=== PATIENT | female | born 1960 | race American Indian/Alaskan Native ===

== ENCOUNTER 2020-09-08 19:46 | Emergency (ER) | payer BC ==
[2020-09-08] MEDS ORDERED: HYDROcodone/ACETAMINOPHEN 5-325 MG TAB PO STA (23:31)
--- NOTE | 2020-09-08 23:41 | Emergency Department Report ---
ED General Adult HPI - General Chief complaint: Extremity Problem,Nontraumatic Stated complaint: LT SIDE PAIN/SWELLING Time Seen by Provider: 09/08/20 23:31 Source: patient Mode of arrival: Ambulatory Limitations: No Limitations - History of Present Illness Initial comments: 59-year-old obese -Cypriot female past medical history of hypertension and arthritis Zentz to the emergency department complaining of a 2-year history continued left hip pain and right knee pain which radiates down to the level left foot Quality: aching, dull Consistency: constant Worsens with: none Associated Symptoms: denies: confusion, chest pain, nausea/vomiting, weakness - Related Data Previous Rx's Medication Instructions Recorded Last Taken Type Meloxicam [Mobic] 15 mg PO DAILY #10 tablet 09/08/20 Unknown Rx Allergies Allergy/AdvReac Type Severity Reaction Status Date / Time Sulfa (Sulfonamide Allergy Rash Verified 09/08/20 22:08 Antibiotics) ED Review of Systems ROS: Stated complaint: LT SIDE PAIN/SWELLING Other details as noted in HPI Comment: All other systems reviewed and negative ED Past Medical Hx - Past Medical History Previous Medical History?: Yes Hx Arthritis: Yes - Surgical History Past Surgical History?: No - Social History Smoking Status: Never Smoker Substance Use Type: None - Medications Home Medications: Home Medications Medication Instructions Recorded Confirmed Last Taken Type Meloxicam [Mobic] 15 mg PO DAILY #10 tablet 09/08/20 Unknown Rx ED Physical Exam - General Limitations: No Limitations General appearance: alert, in no apparent distress - Head Head exam: Present: atraumatic, normocephalic - Eye Eye exam: Present: normal appearance - ENT ENT exam: Present: mucous membranes moist - Neck Neck exam: Present: normal inspection - Respiratory Respiratory exam: Present: normal lung sounds bilaterally. Absent: respiratory distress - Cardiovascular Cardiovascular Exam: Present: regular rate, normal rhythm. Absent: systolic murmur, diastolic murmur, rubs, gallop - GI/Abdominal GI/Abdominal exam: Present: soft, normal bowel sounds - Extremities Exam Extremities exam: Present: normal inspection, tenderness (To the left knee with palpation and range of motion there is some discomfort with full flexion. Full extension is is present. Normal varus and valgus. Pulses 2+ there is popliteal tenderness but no significant masses appreciated.), other (Left hip tenderness at the sacroiliac joint area of the greater trochanter. No deformity or shortening is noted.) - Back Exam Back exam: Present: normal inspection. Absent: CVA tenderness (R), CVA tenderness (L) - Neurological Exam Neurological exam: Present: alert, oriented X3, CN II-XII intact, normal gait - Psychiatric Psychiatric exam: Present: normal affect, normal mood - Skin Skin exam: Present: warm, dry, intact, normal color. Absent: rash Critical care attestation.: If time is entered above; I have spent that time in minutes in the direct care of this critically ill patient, excluding procedure time. ED Disposition Clinical Impression: Chronic pain, Knee pain, Hip pain Disposition: TO HOME OR SELFCARE Is pt being admited?: No Does the pt Need Aspirin: No Condition: Stable Instructions: Chronic Knee Pain, Adult, [id number], How to Use Cold Therapy, [id number], Chronic Pain, Adult, How to Use Cold Therapy, Pain Medicine Instructions, How to Use a Knee Brace Prescriptions: Meloxicam [Mobic] 15 mg PO DAILY #10 tablet Referrals: MONCHO PACHECO MD [Primary Care Provider] - 3-5 Days DERIK CHEEMA MD [Staff Physician] - 3-5 Days [facility] [Provider Group] - 3-5 Days
[2020-09-09 02:01] VITALS: BP 133/80
== END 2020-09-09 01:00 | disposition home or self-care (01) ==
LOC: ED 19:46
DX: M25.552 Pain in left hip (principal); M25.561 Pain in right knee; G89.29 Other chronic pain; M19.91 Primary osteoarthritis, unspecified site; Z79.899 Other long term (current) drug therapy; Z88.2 Allergy status to sulfonamides
CPT/HCPCS: 99282

== ENCOUNTER 2020-10-11 11:17 | Outpatient (CLI) | payer BC ==
--- NOTE | 2020-10-11 12:53 | XRay Report ---
XR knee 1-2V LT INDICATION / CLINICAL INFORMATION: LEFT KNEE PAIN. COMPARISON: None available. FINDINGS: BONES/JOINT(S): No acute fracture or subluxation. No significant degenerative changes. Small joint ef fusion. SOFT TISSUES: No significant abnormality. ADDITIONAL FINDINGS: None. Signer Name: Ashu Cohen MD Signed: 10/11/2020 12:48 PM Workstation Name: [email or web address]
--- NOTE | 2020-10-11 12:54 | XRay Report ---
XR spine lumbosacral 4+V INDICATION / CLINICAL INFORMATION: LOW BACK PAIN. COMPARISON: None available. FINDINGS: BONES/JOINT(S): No acute fracture or subluxation. Moderate degenerative disc disease at L5-S1 without additional significant disc height loss. SOFT TISSUES: No significant abnormality. ADDITIONAL FINDINGS: None. Signer Name: Ashu Cohen MD Signed: 10/11/2020 12:49 PM Workstation Name: [email or web address]
--- NOTE | 2020-10-11 12:54 | XRay Report ---
XR hip 2-3V LT INDICATION / CLINICAL INFORMATION: LEFT HIP PAIN. COMPARISON: None available. FINDINGS: BONES/JOINT(S): No acute fracture or subluxation. Moderate osteoarthritis and left hip joint. No foca l bone lesions. SOFT TISSUES: No significant abnormality. ADDITIONAL FINDINGS: None. Signer Name: Ashu Cohen MD Signed: 10/11/2020 12:49 PM Workstation Name: [email or web address]
== END 2020-10-11 11:18 | disposition home or self-care (01) ==
LOC: XRAY 11:17
PROVIDERS: ATTEND Orthopaedic Surgery
DX: M16.12 Unilateral primary osteoarthritis, left hip (principal); M25.462 Effusion, left knee; M51.37 Other intervertebral disc degeneration, lumbosacral region
CPT/HCPCS: 72110

== ENCOUNTER 2021-01-01 11:03 | Outpatient (CLI) | payer BC ==
[2021-01-01 11:41] LABS: Basophils # (Auto) 0.1 K/mm3 (0.0-0.1); Eosinophils # (Auto) 0.2 K/mm3 (0.0-0.4); Eosinophils % (Auto) 3.9 % (0.0-4.3); Hematocrit 40.6 % (30.3-42.9); Hemoglobin 13.7 gm/dl (10.1-14.3); Lymphocytes # (Auto) 2.7 K/mm3 (1.2-5.4); Lymphocytes % (Auto) 47.1 % (13.4-35.0); Mean Corpuscular HGB Conc 34 % (30-34); Mean Corpuscular Volume 87 fl (79-97); Monocytes # (Auto) 0.4 K/mm3 (0.0-0.8); Monocytes % (Auto) 7.1 % (0.0-7.3); Platelet Count 324 K/mm3 (140-440); Red Blood Count 4.69 M/mm3 (3.65-5.03); Red Cell Distribution Width 14.7 % (13.2-15.2)
[2021-01-01 14:13] LABS: Erythrocyte Sedimentation Rate 47 mm/Hr (0-20)
[2021-01-05 06:25] LABS: ANA Screen, IFA Negative (Negative)
== END 2021-01-01 11:04 | disposition home or self-care (01) ==
LOC: LAB 11:03
PROVIDERS: ATTEND Orthopaedic Surgery
DX: M54.50 Low back pain, unspecified (principal); M25.552 Pain in left hip; M25.562 Pain in left knee
CPT/HCPCS: 36415; 84550; 85025; 85652; 86038; 86431

== ENCOUNTER 2021-01-22 11:43 | Outpatient (CLI) | payer BC ==
--- NOTE | 2021-01-22 15:06 | Magnetic Resonance Report ---
MRI LEFT KNEE WITHOUT CONTRAST INDICATION / CLINICAL INFORMATION: PAIN IN LEFT KNEE X 5MONTHS. TECHNIQUE: Multiplanar, multisequence MR images were obtained. No contrast used. COMPARISON: Radiograph dated 10/11/2020 FINDINGS: ACL: No significant abnormality. PCL: No significant abnormality. DISTAL QUADRICEPS TENDON: No significant abnormality. PATELLAR TENDON: No significant abnormality. MEDIAL MENISCUS: No significant abnormality. LATERAL MENISCUS: Complex tear involving body and posterior horn. MCL: No significant abnormality. LCL: No significant abnormality. DISTAL IT BAND: No significant abnormality. PATELLOFEMORAL ALIGNMENT: No significant abnormality. ARTICULAR CARTILAGE: Tricompartmental DJD most advanced in the lateral compartment where there is a 1 .4 cm osteochondral lesion along the mid to posterior and lateral weightbearing portion of the latera l tibial plateau. JOINT SPACE: No significant joint effusion or synovitis. No significant popliteal cyst. No intra-omari cular bodies. BONES: Subchondral degenerative cystic change in the lateral tibial plateau. No fracture. No osseous lesion. SOFT TISSUES: No significant abnormality. ADDITIONAL FINDINGS: None. IMPRESSION: 1. Tricompartmental DJD with osteochondral lesion along the lateral tibial plateau. 2. Complex tear of the body and posterior horn of lateral meniscus. Report dictated by: Naman Mixon MD Report dictated on: 01/22/2021 1:44 PM I have reviewed the images, agree with this report, and edited this report as needed. Signer Name: Tha Rendon MD Signed: 01/22/2021 3:02 PM Workstation Name: [email or web address]
--- NOTE | 2021-01-22 15:08 | Magnetic Resonance Report ---
MRI LEFT HIP WITHOUT CONTRAST INDICATION / CLINICAL INFORMATION: HIP PAIN AND LOWER BACK PAIN. TECHNIQUE: Multiplanar, multisequence MR images were obtained. No contrast used. COMPARISON: None available. FINDINGS: ACETABULAR LABRUM: Degenerative tearing of superior labrum ARTICULAR CARTILAGE: Advanced DJD of left hip joint. LIGAMENTUM TERES: No significant abnormality. JOINT SPACE AND CAPSULE: No significant abnormality. GLUTEAL MUSCLES/TENDONS: No significant abnormality. ILIOPSOAS MUSCLES/TENDON: No significant abnormality. PROXIMAL HAMSTRING TENDONS: No significant abnormality. GROIN MUSCLES/TENDONS: No significant abnormality. SOFT TISSUES: No significant abnormality. BONES: Subchondral cystic change and acetabulum and femoral head. No aggressive osseous lesion. No fr acture. SACROILIAC JOINT(S): No significant abnormality. LOWER LUMBAR SPINE: No significant abnormality of visualized lower lumbar spine. SOFT TISSUE WITHIN PELVIS: 15 mm filling defect in the endometrial cavity of uterus. ADDITIONAL FINDINGS: None. IMPRESSION: 1. Advanced DJD of left hip joint with degenerative tearing of the labrum. 2. 15 mm filling defect in the endometrial cavity of uterus is nonspecific, possibly fibroid versus p olyp. Recommend clinical correlation. Report dictated by: Naman Mixon MD Report dictated on: 01/22/2021 1:52 PM I have reviewed the images, agree with this report, and edited this report as needed. Signer Name: Tha Rendon MD Signed: 01/22/2021 3:04 PM Workstation Name: [email or web address]
== END 2021-01-22 11:44 | disposition home or self-care (01) ==
LOC: MRI 11:43
PROVIDERS: ATTEND Orthopaedic Surgery
DX: S83.272A Complex tear of lateral meniscus, current injury, left knee, initial encounter (principal); S73.102A Unspecified sprain of left hip, initial encounter; M16.12 Unilateral primary osteoarthritis, left hip; X58.XXXA Exposure to other specified factors, initial encounter; Y93.89 Activity, other specified; Y92.89 Other specified places as the place of occurrence of the external cause; Y99.8 Other external cause status
CPT/HCPCS: 73721

== ENCOUNTER 2021-02-05 09:29 | Day surgery (SDC) | payer BC ==
[2021-01-31 12:34] LABS: Hematocrit 39.6 % (30.3-42.9); Hemoglobin 13.2 gm/dl (10.1-14.3); Mean Corpuscular HGB Conc 33 % (30-34); Mean Corpuscular Volume 88 fl (79-97); Platelet Count 347 K/mm3 (140-440); Red Blood Count 4.52 M/mm3 (3.65-5.03)
[2021-01-31 12:51] LABS: BUN/Creatinine Ratio 18; Blood Urea Nitrogen 14 mg/dL (7-17); Calcium 9.4 mg/dL (8.4-10.2); Hemolysis Index 9
[2021-02-05] MEDS ORDERED: HYDROmorphone 1 MG/1 ML INJ IV PRN (11:33)
--- NOTE | 2021-02-05 11:34 | Anesthesia Day of Surgery ---
Anesthesia Day of Surgery - Day of Surgery Patient Examined: Yes Patient H&P Reviewed: Yes Patient is NPO: Yes
--- NOTE | 2021-02-05 11:35 | Anesthesia Consultation ---
Anesthesia Consult and Med Hx Date of service: 02/05/21 - Airway Anesthetic Teeth Evaluation: Dentures ROM Head & Neck: Adequate Mental/Hyoid Distance: Adequate Mallampati Class: Class III Intubation Access Assessment: Probably Good - Pre-Operative Health Status ASA Pre-Surgery Classification: ASA3 Proposed Anesthetic Plan: General - Pulmonary Hx Smoking: No Hx Sleep Apnea: No (LOUIE PRE SCREEN HIGH RISK) - Cardiovascular System Hx Hypertension: Yes (X 2 YRS) - Central Nervous System Hx Psychiatric Problems: No - Gastrointestinal Hx Gastroesophageal Reflux Disease: No - Hematic Hx Anemia: No Hx Sickle Cell Disease: No - Other Systems Hx Cancer: No Hx Obesity: Yes
[2021-02-05] MEDS ORDERED: LACTATED RINGERS 1,000 ML IV SCH (11:45)
[2021-02-05] MEDS ORDERED: ONDANSETRON 4 MG/2 ML INJ IV PRN (11:46)
[2021-02-05] MEDS ORDERED: KETOROLAC 30 MG/1 ML INJ IV ONE (12:00)
[2021-02-05] MEDS ORDERED: ACETAMINOPHEN 500 MG TAB PO ONE (12:00)
[2021-02-05] MEDS ORDERED: propofoL 200 MG/20 ML VIAL IV ONE ×2 (12:38→13:21)
[2021-02-05] MEDS ORDERED: LIDOCAINE MPF (2%) 20 MG/1 ML VIAL 5 ML ONE ×2 (12:38→13:21)
[2021-02-05] MEDS ORDERED: fentaNYL 100 MCG/2 ML INJ ONE ×2 (12:38→13:21)
[2021-02-05] MEDS ORDERED: ceFAZolin/STERILE WATER 2 GM/20 ML SYRINGE IV NR (13:00)
[2021-02-05] MEDS ORDERED: ONDANSETRON 4 MG/2 ML INJ ONE (13:21)
[2021-02-05] MEDS ORDERED: EPINEPHrine 30 MG/30 ML INJ IV ONE (13:22)
[2021-02-05] MEDS ORDERED: LIDOCAINE (1%) 10 MG/1 ML VIAL 20 ML MDV ONE (13:22)
[2021-02-05] MEDS ORDERED: SODIUM CHLORIDE 0.9% IRRIG SOLN 2000 ML IR ONE (14:41)
[2021-02-05] MEDS ORDERED: EPINEPHrine 1 MG/10 ML SYRINGE IV ONE (14:43)
[2021-02-05] MEDS ORDERED: TRIAMCINOLONE 40 MG/1 ML INJ IM ONE (14:44)
[2021-02-05] MEDS ORDERED: LIDOCAINE (1%) 10 MG/1 ML VIAL 20 ML MDV INFILTRATI ONE (14:45)
[2021-02-05] MEDS: HYDROmorphone 1 MG/1 ML INJ IV PRN ×4 (15:05→15:35)
[2021-02-05] MEDS ORDERED: HYDROcodone/ACETAMINOPHEN 5-325 MG TAB ONE (15:13)
[2021-02-05] MEDS ORDERED: HYDROcodone/ACETAMINOPHEN 5-325 MG TAB PO PRN (16:00)
--- NOTE | 2021-02-05 17:24 | Post Anesthesia Evaluation ---
- Post Anesthesia Evaluation Patient Participated: Yes Airway Patent: Yes Stable Respiratory Function: Yes Nausea/Vomiting: No Temp > 96.8F: Yes Pain Manageable: Yes Adequeate Hydration: Yes Anesthesia Complications: No Block Receding Appropriately: Not Applicable Patient on Ventilator: No
--- NOTE | 2021-02-05 17:50 | Operative Report ---
Operative Report Operative Report: Preop diagnosis : Lateral meniscus tear , LEFT knee Postop diagnosis: 1. Posterior horn tear medial meniscus,degenerative , Left knee ; 2. Lateral compartment chondromalacia with anterior synovitis, left knee Procedure: 1. Surgical arthroscopy, left knee 2. Arthromeniscectomy and synovial debridement, left knee 3. Triamcinolone/lidocaine injection, left knee Surgeon: Andrzej Simms MD Anesthesia: General with LMA Details of operative technique : The patient was prepared in the outpatient surgery holding area. She was then brought to the operating room where she underwent satisfactory general anesthesia utilizing an LMA. She was then placed in the supine position and the left knee was placed in the knee caputo. The knee was prepped and draped in the usual sterile fashion utilizing ChloraPrep solution. The extremity was then elevated and exsanguinated with an Esmarch bandage and the tourniquet was inflated to 300 mmHg. A timeout was then called by the circulating nurse and once again the correct site was identified. Arthroscopy was carried out through an anterolateral approach. The medial compartment showed what appeared to be normal articular surfaces for both medial femoral condyle and tibial plateau. The medial meniscus appeared to be intact. Femoral condyle showed small closed areas of cartilage delamination and less so on the tibial plateau surface. The notch was then explored revealing intact anterior cruciate and posterior cruciate ligaments. . The lateral compartment showed what appeared to be significant chondromalacia involving both femoral condyle and tibial surfaces ; there was also a degenerative tear in the posterior horn of the lateral meniscus at the junction between the posterior horn and the body of the meniscus. The patellofemoral compartment was investigat ed and found to have normal articular surfaces however there was significant lateral tilting of the patella as well as lateral tracking of the patella upon the superior lateral surface of the distal femoral trochlea. Attention was then redirected to the lateral compartment where the torn portion of the lateral meniscus was removed and contoured with an arthroscopic shaver. A separate smooth shaver was then utilized to contour the areas of chondromalacia on the femoral condyle surface removing all shaggy borders. . Arthroscopic Polaroid photos were taken both before and after debridement and were saved. All arthroscopic fluid was then removed with suction and both medial and lateral portals were closed with individual sutures of 2-0 undyed Vicryl suture. The Knee was then injected with a mixture of Kenalog 40 mg (1 cc) and 3 cc of 1% lidocaine. Steri-Strips were placed on the skin. An ABD pad was then applied and secured with an Aric wrap. The patient was then awakened and taken to recovery room in excellent condition. Drains: None Complications: None Tourniquet time: 45 minutes
[2021-02-05 19:56] VITALS: BP 127/69
== END 2021-02-05 09:30 | disposition home or self-care (01) ==
LOC: OR 09:29
PROVIDERS: ATTEND Orthopaedic Surgery
DX: S83.282A Other tear of lateral meniscus, current injury, left knee, initial encounter (principal); M94.262 Chondromalacia, left knee; M65.9 Synovitis and tenosynovitis, unspecified; I10 Essential (primary) hypertension; E66.9 Obesity, unspecified; Z79.899 Other long term (current) drug therapy; Z98.890 Other specified postprocedural states; X58.XXXA Exposure to other specified factors, initial encounter; Y93.89 Activity, other specified; Y92.89 Other specified places as the place of occurrence of the external cause
CPT/HCPCS: 29881; 36415; 80048; 82962; 85027; J0171; J0690; J1170; J2405; J2704; J3010; J3301; J3490; J7120; U0003